=== PATIENT | male | born 1970 | race Caucasian/White ===

== ENCOUNTER 2018-02-07 22:05 | Emergency (ER) | payer BC ==
[~2018-02-07] VITALS: Ht 170.2 cm; Wt 85.3 kg
[2018-02-07 22:14] VITALS: Ht 170.2 cm; Wt 85.3 kg
[2018-02-07 23:07] VITALS: BP 128/67
== END 2018-02-07 23:07 | disposition home or self-care (01) ==
LOC: ED 22:05
DX: N39.0 Urinary tract infection, site not specified (principal)
CPT/HCPCS: J0696